=== PATIENT | male | born 1945 | race Caucasian/White ===

== ENCOUNTER 2017-06-02 19:52 | Inpatient (IN) | payer OTHER ==
[~2017-06-02] VITALS: Ht 160 cm; Wt 78.0 kg
[2017-06-02 19:57] VITALS: BP_SYST 138
[2017-06-02 20:37] LABS: BASOPHILS # (AUTO) 0.1 K/uL (0.0-0.2); BASOPHILS % (AUTO) 0.7 % (0.0-2.0); EOSINOPHILS # (AUTO) 0.2 K/uL (0.0-0.4); HEMATOCRIT 43.2 % (36-54); HEMOGLOBIN 14.5 g/dL (14.0-18.0); LYMPHOCYTES # (AUTO) 2.5 K/uL (1.0-5.5); LYMPHOCYTES % (AUTO) 25.3 % (20.5-51.5); MEAN CORPUSCULAR HEMOGLOBIN 31 pg (27-31); MEAN CORPUSCULAR HGB CONC 34 % (32-36); MEAN CORPUSCULAR VOLUME 91 fL (79.0-98.0); MONOCYTES # (AUTO) 0.8 K/uL (0.0-1.0); MONOCYTES % (AUTO) 8.5 % (1.7-9.3); NEUTROPHILS # (AUTO) 6.4 K/uL (1.8-7.7); NEUTROPHILS % (AUTO) 63.5 % (40.0-70.0); PLATELET COUNT (AUTO) 231 K/uL (130-430); RED BLOOD CELL COUNT(AUTO) 4.76 MIL/uL (4.2-6.2); RED CELL DISTRIBUTION WIDTH 12.9 % (9.0-15.0)
[2017-06-02 20:40] LABS: ANION GAP 6 (5-15); CALCIUM 8.6 mg/dL (8.4-11.0); CHLORIDE 105 mmol/L (98-107); CREATININE 0.89 mg/dL (0.55-1.30); GLUCOSE 133 mg/dL (70-99); POTASSIUM 4.1 mmol/L (3.5-5.1); SODIUM SERUM 140 mmol/L (136-145); UREA NITROGEN, BLOOD 12 mg/dL (8-21)
[2017-06-02 20:44] LABS: PROTHROMBIN TIME 10.7 SECS (9.5-12.5)
[2017-06-02 20:48] LABS: ALANINE AMINOTRANSFERASE 30 U/L (12-78); ALBUMIN 3.4 g/dL (3.4-4.8); ASPARTATE AMINOTRANSFERASE 26 U/L (10-37); TOTAL BILIRUBIN 0.5 mg/dL (0.0-1.0); TOTAL PROTEIN, SERUM 7.7 g/dL (6.4-8.3)
[2017-06-02 22:11] VITALS: BP_SYST 136
[2017-06-02] MEDS: LR 1,000 ML IV SCH (23:25)
[2017-06-02] MEDS ORDERED: traMADol HCL HCL 50 MG TABLET (ULTRAM) PO PRN (23:30)
[2017-06-02] MEDS ORDERED: ACETAMINOPHEN 325 MG TABLET ONE (23:40)
[2017-06-03] MEDS: ASPIRIN 81 MG TAB.CHEW PO SCH ×3 (06:14→23:12)
[2017-06-03 06:35] VITALS: BP_SYST 141
[2017-06-03 08:00] VITALS: BP_SYST 130
[2017-06-03] MEDS ORDERED: IOHEXOL 350 mgI/mL, 150 ML INFUS..BTL IV ONE (09:32)
[2017-06-03] MEDS ORDERED: DEXAMETHASONE SOD PHOSPHATE 10 MG/ML VIAL IVP ONE (11:15)
[2017-06-03 12:25] VITALS: BP_SYST 141
[2017-06-03 16:18] VITALS: BP_SYST 144
[2017-06-03] MEDS: DEXAMETHASONE SOD PHOSPHATE 4 MG/ML VIAL IV SCH ×2 (18:30→23:13)
[2017-06-04 00:18] VITALS: BP_SYST 124
[2017-06-04] MEDS: ACETAMINOPHEN 325 MG TABLET PO PRN (03:36)
[2017-06-04 04:42] VITALS: BP_SYST 111
[2017-06-04] MEDS: ASPIRIN 81 MG TAB.CHEW PO SCH ×3 (05:26→21:10)
[2017-06-04] MEDS: DEXAMETHASONE SOD PHOSPHATE 4 MG/ML VIAL IV SCH ×3 (05:26→16:55)
[2017-06-04 08:00] VITALS: BP_SYST 144
[2017-06-04 12:21] VITALS: BP_SYST 124
[2017-06-04 16:25] VITALS: BP_SYST 131
[2017-06-04] MEDS ORDERED: cloNIDine HCL 0.1 MG TABLET PO PRN (16:45)
[2017-06-04] MEDS ORDERED: ONDANSETRON HCL 4 MG/2 ML VIAL IVP PRN (16:45)
[2017-06-04] MEDS: LR 1,000 ML IV SCH (20:02)
[2017-06-04 20:17] VITALS: BP_SYST 136
[2017-06-05 00:47] VITALS: BP_SYST 143
[2017-06-05] MEDS: DEXAMETHASONE SOD PHOSPHATE 4 MG/ML VIAL IV SCH ×5 (01:00→23:16)
[2017-06-05 04:26] VITALS: BP_SYST 139
[2017-06-05] MEDS: ASPIRIN 81 MG TAB.CHEW PO SCH ×3 (06:39→21:26)
[2017-06-05 08:44] VITALS: BP_SYST 137
[2017-06-05] MEDS: LR 1,000 ML IV SCH ×2 (12:02→18:59)
[2017-06-05 12:05] VITALS: BP_SYST 136
[2017-06-05] MEDS ORDERED: GADOPENTETATE DIMEGLUMINE 15 ML VIAL IV ONE (12:25)
[2017-06-05 17:17] VITALS: BP_SYST 156
[2017-06-05] MEDS ORDERED: DIATR MEGLU/DIATRIZ SOD 30 ML SOLUTION PO ONE (19:52)
[2017-06-05 20:00] VITALS: BP_SYST 149
[2017-06-05] MEDS ORDERED: IOHEXOL 100 ML IV ONE (21:45)
[2017-06-06] VITALS (7 sets, daily range): BP systolic 120–147
[2017-06-06] MEDS: DEXAMETHASONE SOD PHOSPHATE 4 MG/ML VIAL IV SCH ×4 (05:08→23:05)
[2017-06-06] MEDS: LR 1,000 ML IV SCH ×2 (05:09→23:05)
[2017-06-06] MEDS: ASPIRIN 81 MG TAB.CHEW PO SCH ×3 (05:09→23:04)
[2017-06-07] MEDS: ACETAMINOPHEN 325 MG TABLET PO PRN ×2 (01:00→21:03)
[2017-06-07 03:42] VITALS: BP_SYST 143
[2017-06-07] MEDS: ASPIRIN 81 MG TAB.CHEW PO SCH ×3 (05:04→22:38)
[2017-06-07] MEDS: DEXAMETHASONE SOD PHOSPHATE 4 MG/ML VIAL IV SCH ×3 (05:04→17:46)
[2017-06-07 07:31] LABS: HEMATOCRIT 41.1 % (36-54); HEMOGLOBIN 13.7 g/dL (14.0-18.0); LYMPHOCYTES # (AUTO) 1.1 K/uL (1.0-5.5); LYMPHOCYTES % (AUTO) 7.8 % (20.5-51.5); MEAN CORPUSCULAR HEMOGLOBIN 31 pg (27-31); MEAN CORPUSCULAR HGB CONC 33 % (32-36); MEAN CORPUSCULAR VOLUME 92 fL (79.0-98.0); MONOCYTES # (AUTO) 0.8 K/uL (0.0-1.0); MONOCYTES % (AUTO) 5.5 % (1.7-9.3); NEUTROPHILS # (AUTO) 12.4 K/uL (1.8-7.7); NEUTROPHILS % (AUTO) 86.7 % (40.0-70.0); PLATELET COUNT (AUTO) 199 K/uL (130-430); RED BLOOD CELL COUNT(AUTO) 4.45 MIL/uL (4.2-6.2); RED CELL DISTRIBUTION WIDTH 12.8 % (9.0-15.0); WHITE BLOOD COUNT (AUTO) 14.3 K/uL (4.8-10.8)
[2017-06-07 08:00] VITALS: BP_SYST 158
[2017-06-07 08:08] LABS: % FREE PSA 23.3 % (.); FREE PSA 0.07 ng/mL; PROSTATE SPECIFIC AG TOTAL 0.3 ng/mL (0.0-4.0)
[2017-06-07 08:10] LABS: ANION GAP 7 (5-15); CALCIUM 7.6 mg/dL (8.4-11.0); CHLORIDE 104 mmol/L (98-107); CREATININE 0.74 mg/dL (0.55-1.30); GLUCOSE 127 mg/dL (70-99); POTASSIUM 3.9 mmol/L (3.5-5.1); SODIUM SERUM 137 mmol/L (136-145); UREA NITROGEN, BLOOD 19 mg/dL (8-21)
[2017-06-07 08:11] LABS: ALANINE AMINOTRANSFERASE 29 U/L (12-78); ALBUMIN 2.7 g/dL (3.4-4.8); ASPARTATE AMINOTRANSFERASE 22 U/L (10-37); FREE T4 (FREE THYROXINE) 0.7 ng/dL (0.6-1.6); THYROID STIMULATING HORMONE 0.25 uIu/mL (0.34-4.82); TOTAL BILIRUBIN 0.5 mg/dL (0.0-1.0); TOTAL PROTEIN, SERUM 6.6 g/dL (6.4-8.3)
[2017-06-07 08:31] LABS: ERYTHROCYTE SEDIMENTATION RATE 6 MM/HR (0-15)
[2017-06-07 12:18] VITALS: BP_SYST 138
[2017-06-07] MEDS ORDERED: LIDOCAINE 1%, 20 ML MDV 20 ML ONE (14:23)
[2017-06-07 16:49] VITALS: BP_SYST 142
[2017-06-07] MEDS ORDERED: DEC4 PO (18:41)
[2017-06-07] MEDS ORDERED: AMLO5TAB4 PO (18:42)
[2017-06-07 20:00] VITALS: BP_SYST 163
[2017-06-07] MEDS: amLODIPine BESYLATE 5 MG TABLET PO SCH (21:04)
[2017-06-07] MEDS: LR 1,000 ML IV SCH (21:17)
[2017-06-08] MEDS: DEXAMETHASONE SOD PHOSPHATE 4 MG/ML VIAL IV SCH ×3 (01:13→12:37)
[2017-06-08] MEDS: ACETAMINOPHEN 325 MG TABLET PO PRN ×2 (01:18→09:13)
[2017-06-08 01:21] VITALS: BP_SYST 166
[2017-06-08 03:30] VITALS: BP_SYST 171
[2017-06-08] MEDS: ASPIRIN 81 MG TAB.CHEW PO SCH (06:57)
[2017-06-08] MEDS ORDERED: DEXAMETHASONE SOD PHOSPHATE 4 MG/ML VIAL ONE (07:04)
[2017-06-08 08:00] VITALS: BP_SYST 128
[2017-06-08] MEDS: amLODIPine BESYLATE 5 MG TABLET PO SCH (09:11)
[2017-06-08 11:34] VITALS: BP_SYST 128
[2017-06-08 12:00] VITALS: BP_SYST 117
== END 2017-06-08 14:00 | disposition home health service (06) | DRG 55 ==
LOC: SED 19:52 → STU 21:46 → SMU 06-04 17:03
PROVIDERS: ADMIT Internal Medicine; ATTEND Internal Medicine
PROC: 009U3ZX Drainage of Spinal Canal, Percutaneous Approach, Diagnostic (ICD-10-PCS; principal; 2017-06-07)
PROC: B01B1ZZ Fluoroscopy of Spinal Cord using Low Osmolar Contrast (ICD-10-PCS; 2017-06-07)
DX: C71.9 Malignant neoplasm of brain, unspecified (principal); H49.22 Sixth [abducent] nerve palsy, left eye; R26.9 Unspecified abnormalities of gait and mobility; Z98.49 Cataract extraction status, unspecified eye; E66.9 Obesity, unspecified; Z68.30 Body mass index [BMI] 30.0-30.9, adult; N40.0 Benign prostatic hyperplasia without lower urinary tract symptoms
CPT/HCPCS: 36415; 62270; 70450-TC; 70496; 70498; 70553; 71010; 71260-TC; 80053; 82962; 84153; 84439; 84443-TC; 84484; 85025; 85610-TC; 85651-TC; 85730-TC; 88108; 93005; 99285; A9579; J1100; J2001; J7120; Q9964; Q9967